=== PATIENT | female | born 1950 | race Caucasian/White ===

== ENCOUNTER 2019-08-27 12:24 | Emergency (ER) | payer MEDICARE, BC ==
--- NOTE | 2019-08-27 12:38 | ERPHSYRPT ---
- History of Present Illness Time Seen by Provider: 08/27/19 12:45 Source: patient Exam Limitations: no limitations Physician History: Patient is a 69-year-old female who presents to our ED with complaints of shortness of breath that has been progressive over the past 3 days. Shortness of breath is associated with a soreness sensation in her upper chest and back. No associated nausea or vomiting. No diaphoresis. Patient advises that she was treated for URI approximately 3 weeks ago. Patient was started on amoxicillin. Patient states her symptoms improved but appears to be returning. Patient had a CABG performed in March 2019. Patient states that things have been well from this perspective. Symptoms are progressive. Symptoms are moderate in intensity. No specific worsening or improving factors. Patient voices no other complaints at this time. Timing/Duration: day(s) (3 days) Activities at Onset: rest Severity of Dyspnea-Max: moderate Severity of Dyspnea-Current: moderate Possible Cause: no prior episodes Modifying Factors: Improves With: activity Associated Symptoms: chest pain/discomfort Allergies/Adverse Reactions: No Known Drug Allergies Allergy (Verified 10/15/15 17:49) Home Medications: Levothyroxine Sodium 25 Mcg [Synthroid 25 Mcg] 25 mcg PO DAILY 01/03/14 [ History] Lisinopril/Hydrochlorothiazide [Lisinopril-Hctz 20-12.5 mg Tab] 1 each PO DAILY 01/03/14 [History] Metformin HCl 500 mg [Glucophage 500 MG] 500 mg PO BID 01/03/14 [History] Simvastatin 10 mg PO HS 01/03/14 [History] Meclizine HCl 25 mg [Antivert 25 mg] 25 mg PO TIDPRN PRN 10/15/15 [History ] Perphenazine/Amitriptyline HCl [Perphen-Amitrip 2 mg-10 mg Tab] 1 each PO HS 05/31 [History] Hx Tetanus, Diphtheria Vaccination/Date Given: No Hx Influenza Vaccination/Date Given: Yes Hx Pneumococcal Vaccination/Date Given: Yes - Review of Systems Constitutional: No Symptoms, No Fever, No Chills Eyes: No Symptoms Ears, Nose, & Throat: No Symptoms Respiratory: No Symptoms, Dyspnea, Dyspnea on Exertion (LOZANO), No Cough Cardiac: No Symptoms, No Chest Pain, No Edema, No Syncope Abdominal/Gastrointestinal: No Symptoms, No Abdominal Pain, No Nausea, No Vomiting, No Diarrhea Genitourinary Symptoms: No Symptoms, No Dysuria Musculoskeletal: No Symptoms, No Back Pain, No Neck Pain Skin: No Symptoms, No Rash Neurological: No Symptoms, No Dizziness, No Focal Weakness, No Sensory Changes Psychological: No Symptoms Endocrine: No Symptoms Hematologic/Lymphatic: No Symptoms Immunological/Allergic: No Symptoms All Other Systems: Reviewed and Negative - Past Medical History Pertinent Past Medical History: Yes Neurological History: No Pertinent History ENT History: No Pertinent History Cardiac History: High Cholesterol, Hypertension, Myocardial Infarction ([place]) Respiratory History: No Pertinent History Endocrine Medical History: No Pertinent History Musculoskeletal History: No Pertinent History GI Medical History: Ulcer History: No Pertinent History Psycho-Social History: Depression Female Reproductive Disorders: No Pertinent History - Past Surgical History Past Surgical History: Yes Neuro Surgical History: No Pertinent History Cardiac: No Pertinent History Respiratory: No Pertinent History Gastrointestinal: Appendectomy Genitourinary: No Pertinent History Musculoskeletal: No Pertinent History Female Surgical History: Tubal Ligation - Social History Smoking Status: Never smoker Exposure to second hand smoke: Yes Drug Use: none Patient Lives Alone: Yes - Nursing Vital Signs Nursing Vital Signs: Initial Vital Signs Temperature 97.7 F 08/27/19 12:38 Pulse Rate 99 H 08/27/19 12:38 Respiratory Rate 30 H 08/27/19 12:38 Blood Pressure 107/90 08/27/19 12:38 O2 Sat by Pulse Oximetry 97 08/27/19 12:38 Pain Scale Pain Intensity 6 - Physical Exam General Appearance: no apparent distress, alert Eye Exam: PERRL/EOMI Neck Exam: normal inspection, supple Respiratory Exam: normal breath sounds Cardiovascular/Chest Exam: normal heart sounds, regular rate/rhythm, other ( Patient is visibly tachypneic. Lungs are clear. No wheezing. No rales or rhonchi.) Abdominal/Gastrointestinal Exam: soft, No tenderness, No distention, No mass Extremity Exam: non-tender, normal range of motion, normal inspection, no calf tenderness, no pedal edema Neurologic Exam: alert, oriented x 3, cooperative, outdoor studies professor II-XII nml as tested, sensation nml, No motor deficits Skin Exam: normal color, warm, No dry SpO2 Interpretation: normal SpO2: 97 O2 Delivery: Room Air - Course EKG Interpreted by Me: RATE, NORMAL AXIS, Left Bundle Branch Block (TWI inferiorly. ) - Radiology Exams Chest X-ray Interpretation: Teleradiologist Report (Chest x-ray reveals mild pleural effusion osteopenia.) - CT Exams Chest CT Interpretation: Tele-radiologist Report (CTA chest shows negative PE. Bilateral pleural effusion favoring cardiac decompensation CHF. Diffuse bilateral patchy airspace disease. Incompletely visualized 2 cm gallstone.) Ordered Tests: Active Orders 24 hr Category Date Time Status Diamond Sawer STAT Care 08/27/19 12:34 Active EKG-ER Only STAT Care 08/27/19 12:34 Active IV Insertion STAT Care 08/27/19 12:34 Active Isolation, Initiate & Maintain Q4H Care 08/27/19 13:05 Active Oxygen-ED Only Nasal Cannula 2 lpm Care 08/27/19 13:06 Active Pulse Oximetry (ED) STAT Care 08/27/19 12:34 Active CHEST 1 VIEW (PORTABLE) Stat Exams 08/27/19 12:59 Completed CHEST WITH CONTRAST [CT] Stat Exams 08/27/19 14:36 Completed ARTERIAL BLOOD GASES Stat Lab 08/27/19 15:38 Ordered BLOOD CULTURE Stat Lab 08/27/19 15:50 Ordered CBC W DIFF Stat Lab 08/27/19 12:45 Completed CMP Stat Lab 08/27/19 12:45 Completed MAGNESIUM Stat Lab 08/27/19 12:45 Completed NT PRO BNP Stat Lab 08/27/19 12:45 Completed PROTIME WITH INR Stat Lab 08/27/19 12:45 Completed PTT Stat Lab 08/27/19 12:45 Completed TROPONIN Q3H Lab 08/27/19 12:45 Received TROPONIN Q3H Lab 08/27/19 15:45 Ordered TROPONIN Q3H Lab 08/27/19 18:45 Ordered TROPONIN Q3H Lab 08/27/19 21:45 Ordered TROPONIN Q3H Lab 08/28/19 00:45 Ordered UA W/RFX UR CULTURE Stat Lab 08/27/19 16:03 Received Medication Summary Generic Name Dose Route Start Last Admin Trade Name Freq PRN Reason Stop Dose Admin Enoxaparin Sodium 96 mg 08/27/19 16:30 Enoxaparin Sodium SQ 09/26/19 16:29 Q12H VIVIANA Discontinued Medications Generic Name Dose Route Start Last Admin Trade Name Freq PRN Reason Stop Dose Admin Aspirin 324 mg 08/27/19 16:16 Baby Aspirin 81 Mg Chew PO 08/27/19 16:17 STAT ONE Furosemide 20 mg 08/27/19 14:28 08/27/19 15:33 Lasix 20 Mg/2 Ml IV 08/27/19 14:29 20 mg ONCE STA Administration Furosemide Confirm 08/27/19 15:31 Lasix 40 Mg/4 Ml Administered 08/27/19 15:32 Dose 40 mg .ROUTE .STK-MED ONE Lab/Rad Data: Laboratory Result Diagrams 08/27/19 12:45 08/27/19 12:45 Laboratory Results 08/27/19 08/27/19 08/27/19 Range/Units 16:03 16:00 12:45 WBC (4.0-10.5) K/mm3 RBC (4.1-5.4) M/mm3 Hgb (12.0-16.0) gm/dl Hct (35-47) % MCV (78-100) fl MCH (26-32) pg MCHC (32-36) g/dl RDW (11.5-14.0) % Plt Count (150-450) K/mm3 MPV (7.5-11.0) fl Gran % (36.0-66.0) % Eos # (Auto) (0-0.5) Absolute Lymphs (auto) (1.0-4.6) Absolute Monos (auto) (0.0-1.3) Lymphocytes % (24.0-44.0) % Monocytes % (0.0-12.0) % Eosinophils % (0.00-5.0) % Basophils % (0.0-0.4) % Absolute Granulocytes (1.4-6.9) Basophils # (0-0.4) PT (9.95-12.35) SECONDS INR (0.8-3.0) APTT (25.3-37.0) SECONDS Puncture Site RIGHT RADIAL pCO2 25 L (35-45) mmHg pO2 180 H* (75-100) mmHg Base Excess -3.8 L (-2.0-2.0) O2 Saturation 98.4 (94-100) g/dF ABG pH 7.47 H (7.35-7.45) ABG HCO3 18.2 L (22-28) ABG O2 Sat (Measured) 99.3 (95-100) % Kzrysztof Test YES A-a Gradient 74 a/A Ratio 0.71 Hemoglobin 13.3 Carboxyhemoglobin 0.7 (0.0-6.9) % THgb Methemoglobin 0.2 L (1.4-1.5) % Temperature 37.0 C POC O2 Flow Rate 40 % Sodium (137-145) mmol/L Potassium 4.2 (3.5-5.1) mmol/L Chloride (98-107) mmol/L Carbon Dioxide (22-30) mmol/L Anion Gap (5-15) MEQ/L BUN (7-17) mg/dL Creatinine (0.52-1.04) mg/dL Estimated GFR ML/MIN Glucose (74-106) mg/dL Calcium (8.4-10.2) mg/dL Magnesium 1.8 (1.6-2.3) mg/dL Total Bilirubin (0.2-1.3) mg/dL AST (14-36) U/L ALT (0-35) U/L Alkaline Phosphatase (38-126) U/L Troponin I (0.000-0.034) ng/mL NT-Pro-B Natriuret Pep (0-900) pg/mL Serum Total Protein (6.3-8.2) g/dL Albumin (3.5-5.0) g/dL Urine Color YELLOW (YELLOW) Urine Appearance SLIGHTLY CLOUDY (CLEAR) Urine pH 6.0 (5-6) Ur Specific Herrick 1.009 (1.005-1.025) Urine Protein NEGATIVE (Negative) Urine Ketones NEGATIVE (NEGATIVE) Urine Blood SMALL (0-5) Floyd/ul Urine Nitrite NEGATIVE (NEGATIVE) Urine Bilirubin NEGATIVE (NEGATIVE) Urine Urobilinogen NEGATIVE (0-1) mg/dL Ur Leukocyte Esterase MODERATE (NEGATIVE) Urine WBC (Auto) 51-100 (0-5) /HPF Urine RBC (Auto) 3-5 (0-2) /HPF U Hyaline Cast (Auto) 11-25 (0-2) /LPF U Epithel Cells (Auto) NONE (FEW) /HPF Urine Bacteria (Auto) FEW (NEGATIVE) /HPF Urine Mucus (Auto) SLIGHT (NEGATIVE) /HPF Urine Culture Reflexed YES (NO) Urine Glucose NEGATIVE (NEGATIVE) mg/dL 08/27/19 08/27/19 08/27/19 Range/Units 12:45 12:45 12:45 WBC (4.0-10.5) K/mm3 RBC (4.1-5.4) M/mm3 Hgb (12.0-16.0) gm/dl Hct (35-47) % MCV (78-100) fl MCH (26-32) pg MCHC (32-36) g/dl RDW (11.5-14.0) % Plt Count (150-450) K/mm3 MPV (7.5-11.0) fl Gran % (36.0-66.0) % Eos # (Auto) (0-0.5) Absolute Lymphs (auto) (1.0-4.6) Absolute Monos (auto) (0.0-1.3) Lymphocytes % (24.0-44.0) % Monocytes % (0.0-12.0) % Eosinophils % (0.00-5.0) % Basophils % (0.0-0.4) % Absolute Granulocytes (1.4-6.9) Basophils # (0-0.4) PT 11.9 (9.95-12.35) SECONDS INR 1.05 (0.8-3.0) APTT 30.3 (25.3-37.0) SECONDS Puncture Site pCO2 (35-45) mmHg pO2 (75-100) mmHg Base Excess (-2.0-2.0) O2 Saturation (94-100) g/dF ABG pH (7.35-7.45) ABG HCO3 (22-28) ABG O2 Sat (Measured) (95-100) % Krzysztof Test A-a Gradient a/A Ratio Hemoglobin Carboxyhemoglobin (0.0-6.9) % THgb Methemoglobin (1.4-1.5) % Temperature C POC O2 Flow Rate % Sodium 140 (137-145) mmol/L Potassium 4.3 (3.5-5.1) mmol/L Chloride 106 (98-107) mmol/L Carbon Dioxide 24 (22-30) mmol/L Anion Gap 14.5 (5-15) MEQ/L BUN 18 H (7-17) mg/dL Creatinine 0.91 (0.52-1.04) mg/dL Estimated GFR > 60.0 ML/MIN Glucose 142 H (74-106) mg/dL Calcium 9.6 (8.4-10.2) mg/dL Magnesium (1.6-2.3) mg/dL Total Bilirubin 1.50 H (0.2-1.3) mg/dL AST 29 (14-36) U/L ALT 18 (0-35) U/L Alkaline Phosphatase 123 (38-126) U/L Troponin I 1.450 H* (0.000-0.034) ng/mL NT-Pro-B Natriuret Pep 8560 H (0-900) pg/mL Serum Total Protein 7.7 (6.3-8.2) g/dL Albumin 4.2 (3.5-5.0) g/dL Urine Color (YELLOW) Urine Appearance (CLEAR) Urine pH (5-6) Ur Specific Herrick (1.005-1.025) Urine Protein (Negative) Urine Ketones (NEGATIVE) Urine Blood (0-5) Floyd/ul Urine Nitrite (NEGATIVE) Urine Bilirubin (NEGATIVE) Urine Urobilinogen (0-1) mg/dL Ur Leukocyte Esterase (NEGATIVE) Urine WBC (Auto) (0-5) /HPF Urine RBC (Auto) (0-2) /HPF U Hyaline Cast (Auto) (0-2) /LPF U Epithel Cells (Auto) (FEW) /HPF Urine Bacteria (Auto) (NEGATIVE) /HPF Urine Mucus (Auto) (NEGATIVE) /HPF Urine Culture Reflexed (NO) Urine Glucose (NEGATIVE) mg/dL 08/27/19 Range/Units 12:45 WBC 10.9 H (4.0-10.5) K/mm3 RBC 4.80 (4.1-5.4) M/mm3 Hgb 12.5 (12.0-16.0) gm/dl Hct 40.6 (35-47) % MCV 84.6 (78-100) fl MCH 26.0 (26-32) pg MCHC 30.8 L (32-36) g/dl RDW 15.8 H (11.5-14.0) % Plt Count 245 (150-450) K/mm3 MPV 11.4 H (7.5-11.0) fl Gran % 78.0 H (36.0-66.0) % Eos # (Auto) 0.34 (0-0.5) Absolute Lymphs (auto) 1.23 (1.0-4.6) Absolute Monos (auto) 0.78 (0.0-1.3) Lymphocytes % 11.3 L (24.0-44.0) % Monocytes % 7.2 (0.0-12.0) % Eosinophils % 3.1 (0.00-5.0) % Basophils % 0.4 (0.0-0.4) % Absolute Granulocytes 8.48 H (1.4-6.9) Basophils # 0.04 (0-0.4) PT (9.95-12.35) SECONDS INR (0.8-3.0) APTT (25.3-37.0) SECONDS Puncture Site pCO2 (35-45) mmHg pO2 (75-100) mmHg Base Excess (-2.0-2.0) O2 Saturation (94-100) g/dF ABG pH (7.35-7.45) ABG HCO3 (22-28) ABG O2 Sat (Measured) (95-100) % Krzysztof Test A-a Gradient a/A Ratio Hemoglobin Carboxyhemoglobin (0.0-6.9) % THgb Methemoglobin (1.4-1.5) % Temperature C POC O2 Flow Rate % Sodium (137-145) mmol/L Potassium (3.5-5.1) mmol/L Chloride (98-107) mmol/L Carbon Dioxide (22-30) mmol/L Anion Gap (5-15) MEQ/L BUN (7-17) mg/dL Creatinine (0.52-1.04) mg/dL Estimated GFR ML/MIN Glucose (74-106) mg/dL Calcium (8.4-10.2) mg/dL Magnesium (1.6-2.3) mg/dL Total Bilirubin (0.2-1.3) mg/dL AST (14-36) U/L ALT (0-35) U/L Alkaline Phosphatase (38-126) U/L Troponin I (0.000-0.034) ng/mL NT-Pro-B Natriuret Pep (0-900) pg/mL Serum Total Protein (6.3-8.2) g/dL Albumin (3.5-5.0) g/dL Urine Color (YELLOW) Urine Appearance (CLEAR) Urine pH (5-6) Ur Specific Herrick (1.005-1.025) Urine Protein (Negative) Urine Ketones (NEGATIVE) Urine Blood (0-5) Floyd/ul Urine Nitrite (NEGATIVE) Urine Bilirubin (NEGATIVE) Urine Urobilinogen (0-1) mg/dL Ur Leukocyte Esterase (NEGATIVE) Urine WBC (Auto) (0-5) /HPF Urine RBC (Auto) (0-2) /HPF U Hyaline Cast (Auto) (0-2) /LPF U Epithel Cells (Auto) (FEW) /HPF Urine Bacteria (Auto) (NEGATIVE) /HPF Urine Mucus (Auto) (NEGATIVE) /HPF Urine Culture Reflexed (NO) Urine Glucose (NEGATIVE) mg/dL - Progress Progress: improved Air Movement: fair Progress Note: 08/27/19 16:31 Patient reassessed. Shortness of breath somewhat improved. Patient is still visibly tachypneic. Troponin elevated. Aspirin and Lovenox administered. BNP elevated. CTA chest shows pleural effusion suggestive of possible congestive heart failure. Bilateral pulmonary airspace disease observed. Possible covid. Patient and in airborne isolation. Staff has been wearing a 95 masks while contact. Initial troponin elevated at 1.45. Patient has normal renal function. 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 Case discussed with Dr. Lynn who agrees with plan of care. Plan of care discussed with patient. She agrees to transfer to [facility] for further evaluation and treatment. Discussed with .: Tim Will see patient in: other (We will transfer patient to [facility] for further evaluation and treatment.) Counseled pt/family regarding: lab results, diagnosis, rad results - Departure Departure Disposition: Home, In-patient Admission, Extended Care Facility Clinical Impression: Bilateral pneumonia, Shortness of breath, Cardiomegaly, Pleural effusion, Gallstone, NSTEMI (non-ST elevated myocardial infarction), Elevated brain natriuretic peptide (BNP) level, Elevated troponin, CHF (congestive heart failure) Condition: Stable Critical Care Time: Yes Critical Care Time(excluding separately billable procedures): Critical 75-104 mins Referrals: VANESSA WRIGHT [Primary Care Provider] - Instructions: Heart Failure
--- NOTE | 2019-08-27 13:14 | XRAY ---
Indication: Chest pain, short of breath, and chills. Suspect COVID 19. Comparison: January 03, 2014. Portable chest demonstrates new blunting both costophrenic angles suggesting mild pleural effusion/thickening. Remaining heart and lungs unremarkable with interval CABG surgery. Bony thorax intact again with mild osteopenia and degenerative changes.
[2019-08-27 13:28] LABS: Absolute Neutrophil Ct (ANC) 8.48 (1.4-6.9); BASOPHIL % 0.4 % (0.0-0.4); Basophil (Absolute #) 0.04 (0-0.4); Eosinophil % 3.1 % (0.00-5.0); Eosinophil (Absolute #) 0.34 (0-0.5); Hematocrit 40.6 % (35-47); Hemoglobin 12.5 gm/dl (12.0-16.0); Lymphocyte (Absolute #) 1.23 (1.0-4.6); Lymphocytes % 11.3 % (24.0-44.0); Mean Cell Volume 84.6 fl (78-100); Mean Corpuscular Hgb Concent. 30.8 g/dl (32-36); Mean Platelet Volume 11.4 fl (7.5-11.0); Monocyte (Absolute #) 0.78 (0.0-1.3); Monocytes % 7.2 % (0.0-12.0); Platelet Count 245 K/mm3 (150-450); Red Cell Distribution Width 15.8 % (11.5-14.0); White Blood Count 10.9 K/mm3 (4.0-10.5)
[2019-08-27 13:37] LABS: INR 1.05 (0.8-3.0); PROTIME 11.9 SECONDS (9.95-12.35)
[2019-08-27 13:40] LABS: PTT 30.3 SECONDS (25.3-37.0)
[2019-08-27 13:50] LABS: ALBUMIN 4.2 g/dL (3.5-5.0); ALKALINE PHOSPHATASE 123 U/L (38-126); ANION GAP 14.5 MEQ/L (5-15); BLOOD UREA NITROGEN 18 mg/dL (7-17); CHLORIDE 106 mmol/L (98-107); Calcium 9.6 mg/dL (8.4-10.2); Carbon Dioxide 24 mmol/L (22-30); Creatinine 1 0.91 mg/dL (0.52-1.04); Glucose 142 mg/dL (74-106); NT PRO BNP 8560 pg/mL (0-900); Potassium 4.3 mmol/L (3.5-5.1); SGOT/AST 29 U/L (14-36); SGPT/ALT 18 U/L (0-35); SODIUM 140 mmol/L (137-145); Total Protein 7.7 g/dL (6.3-8.2)
[2019-08-27] MEDS ORDERED: Lasix 20 MG/2 ML IV STA (14:28)
[2019-08-27] MEDS ORDERED: Lasix 40 MG/4 ML ONE (15:31)
--- NOTE | 2019-08-27 15:34 | XRAY ---
Indication: Short of breath. Elevated d-dimer. Multiple contiguous axial images obtained through the chest using 100 cc Isovue-370 contrast and PE protocol. Comparison: None There is good opacification of the pulmonary arteries to include the lobar and segmental branches. No filling defect or pulmonary embolus. Heart is enlarged and demonstrates CABG surgery. No parenchymal effusion. Aorta is mildly arteriosclerotic without aneurysm/dissection. Tiny subcarinal and left perihilar calcified nodes. No pathologic mediastinal/hilar lymphadenopathy. Examination of the lung parenchyma demonstrates moderate right and mild left effusions with mild bibasilar compressive atelectasis. Also diffuse patchy airspace disease bilaterally, greatest right upper lobe. Bony thorax intact with mild degenerative changes throughout the spine and sternotomy wires. Limited upper abdomen demonstrates incompletely visualized 2 cm dense gallstone. Impression: 1. Negative pulmonary embolus. 2. Cardiomegaly with bilateral pleural effusions favoring cardiac decompensation/CHF. 3. Diffuse bilateral patchy airspace disease. 4. Incompletely visualized 2 cm gallstone.
[2019-08-27 16:05] LABS: A-aADO2 74; ABG HEMOGLOBIN 13.3; ABG POTASSIUM 4.2 (3.5-5.1); ABG SITE RIGHT RADIAL; ALLEN TEST OK? YES; ARTERIAL BLD GAS O2 SATURATION 99.3 % (95-100); ARTERIAL BLOOD GAS BASE EXCESS -3.8 (-2.0-2.0); ARTERIAL BLOOD GAS FIO2 40 %; ARTERIAL BLOOD GAS PCO2 25 mmHg (35-45); ARTERIAL BLOOD GAS PO2 180 mmHg (75-100); ARTERIAL BLOOD GAS pH 7.47 (7.35-7.45); CARBOXYHEMOGLOBIN 0.7 % THgb (0.0-6.9); HCO3- 18.2 (22-28); HGB O2 SAT 98.4 g/dF (94-100); Methhemoglobin 0.2 % (1.4-1.5); paO2 pAO1 0.71
[2019-08-27 16:13] LABS: Appearance SLIGHTLY CLOUDY (CLEAR); Bacteria FEW /HPF (NEGATIVE); Bilirubin NEGATIVE (NEGATIVE); Blood SMALL Ery/ul (0-5); Glucose NEGATIVE (NEGATIVE); Ketones NEGATIVE (NEGATIVE); Leukocyte Esterase MODERATE (NEGATIVE); Mucus SLIGHT /HPF (NEGATIVE); Nitrite NEGATIVE (NEGATIVE); Protein,Urine Dip NEGATIVE (Negative); Specific Gravity 1.009 (1.005-1.025); Urobilinogen NEGATIVE mg/dL (0-1); WBC 51-100 /HPF (0-5)
[2019-08-27] MEDS ORDERED: BABY ASPIRIN 81 MG CHEW PO ONE (16:16)
[2019-08-27] MEDS ORDERED: ENOXAPARIN SODIUM SQ ONE (16:25)
[2019-08-27] MEDS ORDERED: BABY ASPIRIN 81 MG CHEW ONE (16:25)
[2019-08-27] MEDS ORDERED: ENOXAPARIN SODIUM SQ SCH (16:30)
[2019-08-27 16:45] VITALS: BP 99/70; PULSE 97; O2SAT 100
== END 2019-08-27 17:06 | disposition short-term general hospital (02) ==
LOC: ED 12:24
DX: J18.9 Pneumonia, unspecified organism (principal); R06.02 Shortness of breath; I51.7 Cardiomegaly; J90 Pleural effusion, not elsewhere classified; K80.80 Other cholelithiasis without obstruction; I21.4 Non-ST elevation (NSTEMI) myocardial infarction; R79.89 Other specified abnormal findings of blood chemistry; I50.9 Heart failure, unspecified; I10 Essential (primary) hypertension; Z79.899 Other long term (current) drug therapy
CPT/HCPCS: 71260; 80053; 81001; 82375; 82803; 83735; 83880; 84484; 85025; 85610; 85730; 87040; 87077; 87086; 87186; 93005; 93041; 96372; 96374; 99291; 99292; U0001; 36000; 36415; 36600; 71045; 94760; 99000; 99285; J1650; J1940; A9270-GY

== ENCOUNTER 2019-11-11 15:46 | Emergency (ER) | payer MEDICARE, BC ==
--- NOTE | 2019-11-11 15:56 | ERPHSYRPT ---
- History of Present Illness Time Seen by Provider: 11/11/19 15:56 Source: patient, family Exam Limitations: no limitations Physician History: This is a 69-year-old female with a history of coronary artery disease, CHF, gastroesophageal reflux disease, diabetes, gout, hypertension and hypothyroidism. Patient is taking Plavix. Patient presents with intermittent nosebleed from the left nostril since 9:00 this morning. Patient was having some nasal congestion and she blew her nose. She states that there was a "Booger" that she ended up picking and that is when the bleeding started. She is been unable to stop the bleeding. Timing/Duration: abrupt onset Severity: moderate ENT Location: nose Prearrival Treatment: squeezing nostrils, nasal packing Associated Symptoms: epistaxis, No dizziness Allergies/Adverse Reactions: cefdinir Allergy (Severe, Verified 11/11/19 16:09) Home Medications: Acetaminophen 325 mg [Tylenol 325 mg] 325 mg PO Q4HPRN PRN 08/27/19 [History] Allopurinol 100 mg [Zyloprim 100 mg] 100 mg PO DAILY 08/27/19 [History] Alprazolam 0.25 mg [xanAX 0.25 MG] 0.25 mg PO DAILY 08/27/19 [History] Aspirin EC 81 mg [Ecotrin 81 mg] 81 mg PO DAILY 08/27/19 [History] Atorvastatin Calcium [Lipitor] 80 mg PO HS 08/27/19 [History] Ergocalciferol (Vitamin D2) [Vitamin D2] 50,000 unit PO Q7D 08/27/19 [History] Ezetimibe 10 mg [Zetia 10 MG] 10 mg PO DAILY 08/27/19 [History] Furosemide 40 mg [Lasix 40 MG] 40 mg PO DAILY 08/27/19 [History] Levothyroxine Sodium 75 Mcg [Synthroid 75 Mcg] 75 mcg PO DAILY 08/27/19 [History] Loratadine 10 mg [Claritin 10 mg] 10 mg PO DAILY 08/27/19 [History] Metformin HCl 500 mg [Glucophage 500 MG] 500 mg PO BIDWM 08/27/19 [History] Metoprolol Tartrate 25 mg [Lopressor 25MG Tab] 25 mg PO BID 08/27/19 [History] Omeprazole 20 mg PO DAILY 08/27/19 [History] Clopidogrel Bisulfate [Clopidogrel] 75 mg PO DAILY 11/11/19 [History] Potassium Chloride [Klor-Con M20] 20 meq PO DAILY 11/11/19 [History] Hx Tetanus, Diphtheria Vaccination/Date Given: No Hx Influenza Vaccination/Date Given: Yes Hx Pneumococcal Vaccination/Date Given: Yes Travel Risk - International Travel Have you traveled outside of the country in past 3 weeks: No - Coronavirus Screening Are you exhibiting any of the following symptoms?: No Close contact with a COVID-19 positive Pt in past 14-21 Days: No - Review of Systems Constitutional: No Symptoms Eyes: No Symptoms Ears, Nose, & Throat: Epistaxis (Left side) Respiratory: No Symptoms Cardiac: No Symptoms Abdominal/Gastrointestinal: No Symptoms Genitourinary Symptoms: No Symptoms (Patient should like a good amount for no reason) Musculoskeletal: No Symptoms Skin: No Symptoms Neurological: No Symptoms Psychological: No Symptoms Endocrine: No Symptoms Hematologic/Lymphatic: No Symptoms Immunological/Allergic: No Symptoms All Other Systems: Reviewed and Negative - Past Medical History Pertinent Past Medical History: Yes Neurological History: No Pertinent History ENT History: No Pertinent History Cardiac History: High Cholesterol, Hypertension, Myocardial Infarction ([place]) Respiratory History: No Pertinent History Endocrine Medical History: No Pertinent History Musculoskeletal History: No Pertinent History GI Medical History: Ulcer History: No Pertinent History Psycho-Social History: Depression Female Reproductive Disorders: No Pertinent History - Past Surgical History Past Surgical History: Yes Neuro Surgical History: No Pertinent History Cardiac: No Pertinent History Respiratory: No Pertinent History Gastrointestinal: Appendectomy Genitourinary: No Pertinent History Musculoskeletal: No Pertinent History Female Surgical History: Tubal Ligation - Social History Smoking Status: Never smoker Exposure to second hand smoke: Yes Drug Use: none Patient Lives Alone: Yes - Nursing Vital Signs Nursing Vital Signs: Initial Vital Signs Temperature 98.2 F 11/11/19 15:55 Pulse Rate 97 H 11/11/19 15:55 Blood Pressure 143/75 11/11/19 15:55 O2 Sat by Pulse Oximetry 100 11/11/19 15:55 Pain Scale Pain Intensity 0 - Physical Exam General Appearance: no apparent distress, alert, anxiety Eye Exam: bilateral eye: normal inspection, PERRL, EOMI Ear Exam: bilateral ear: auricle normal Nasal Exam: active bleeding (Left nostril slow ooze.) Throat Exam: moist mucus membranes (No active bleeding patient has upper dentures present.) Neck Exam: normal inspection, non-tender, supple, full range of motion, trachea midline, No lymphadenopathy (L) Cardiovascular/Respiratory Exam: chest non-tender, no respiratory distress Abdominal Exam: non-tender Neurologic Exam: alert, oriented x 3, cooperative, title attorney II-XII nml as tested Skin Exam: normal color, warm, dry SpO2 Interpretation: normal O2 Delivery: Room Air - Course Nursing assessment & vital signs reviewed: Yes Ordered Tests: Active Orders 24 hr Category Date Time Status Apply Nose Clip STAT Care 11/11/19 16:37 Active Epistaxis Set Up STAT Care 11/11/19 16:37 Active CBC W DIFF Stat Lab 11/11/19 16:56 Completed CMP Stat Lab 11/11/19 16:56 Completed PROTIME WITH INR Stat Lab 11/11/19 16:56 Completed Medication Summary Discontinued Medications Generic Name Dose Route Start Last Admin Trade Name Freq PRN Reason Stop Dose Admin Phenylephrine HCl Confirm 11/11/19 16:37 Neosynephrine 0.5% Nasal [place]/Drops Administered 11/11/19 16:38 Dose 15 ml .ROUTE .STK-MED ONE Phenylephrine HCl 15 ml 11/11/19 16:37 11/11/19 17:11 Neosynephrine 0.5% Nasal [place]/Drops NS 11/11/19 16:38 15 ml STAT ONE Administration Lab/Rad Data: Laboratory Result Diagrams 11/11/19 16:56 11/11/19 16:56 Laboratory Results 11/11/19 11/11/19 11/11/19 Range/Units 16:56 16:56 16:56 WBC 10.1 (4.0-10.5) K/mm3 RBC 4.80 (4.1-5.4) M/mm3 Hgb 12.5 (12.0-16.0) gm/dl Hct 40.4 (35-47) % MCV 84.2 (78-100) fl MCH 26.0 (26-32) pg MCHC 30.9 L (32-36) g/dl RDW 16.7 H (11.5-14.0) % Plt Count 232 (150-450) K/mm3 MPV 10.5 (7.5-11.0) fl Gran % 66.7 H (36.0-66.0) % Eos # (Auto) 0.45 (0-0.5) Absolute Lymphs (auto) 2.11 (1.0-4.6) Absolute Monos (auto) 0.80 (0.0-1.3) Lymphocytes % 20.8 L (24.0-44.0) % Monocytes % 7.9 (0.0-12.0) % Eosinophils % 4.4 (0.00-5.0) % Basophils % 0.2 (0.0-0.4) % Absolute Granulocytes 6.76 (1.4-6.9) Basophils # 0.02 (0-0.4) PT 11.7 (9.95-12.35) SECONDS INR 1.04 (0.8-3.0) Sodium 140 (137-145) mmol/L Potassium 3.5 (3.5-5.1) mmol/L Chloride 105 (98-107) mmol/L Carbon Dioxide 26 (22-30) mmol/L Anion Gap 12.2 (5-15) MEQ/L BUN 17 (7-17) mg/dL Creatinine 0.82 (0.52-1.04) mg/dL Estimated GFR > 60.0 ML/MIN Glucose 114 H (74-106) mg/dL Calcium 9.1 (8.4-10.2) mg/dL Total Bilirubin 0.70 (0.2-1.3) mg/dL AST 25 (14-36) U/L ALT 18 (0-35) U/L Alkaline Phosphatase 102 (38-126) U/L Serum Total Protein 7.6 (6.3-8.2) g/dL Albumin 4.4 (3.5-5.0) g/dL - Progress Progress: improved, re-examined Progress Note: 11/11/19 17:49 No further bleeding. Counseled pt/family regarding: lab results, diagnosis, need for follow-up - Departure Departure Disposition: Home Clinical Impression: Epistaxis due to trauma Condition: Stable Critical Care Time: No Referrals: VANESSA WRIGHT [Primary Care Provider] - Additional Instructions: Hold your Plavix and aspirin for 48 hours. May restart on November 12. If there is recurrent bleeding present, spray 3 sprays of the Jed-Synephrine into the affected nostril no more often than every 4 hours and then placed the nasal clip for at least 30 minutes.
[2019-11-11] MEDS ORDERED: NEOSYNEPHRINE 0.5% NASAL SPRAY/DROPS NS ONE (16:37)
[2019-11-11] MEDS ORDERED: NEOSYNEPHRINE 0.5% NASAL SPRAY/DROPS ONE (16:37)
[2019-11-11 16:59] LABS: Absolute Neutrophil Ct (ANC) 6.76 (1.4-6.9); BASOPHIL % 0.2 % (0.0-0.4); Basophil (Absolute #) 0.02 (0-0.4); Eosinophil % 4.4 % (0.00-5.0); Eosinophil (Absolute #) 0.45 (0-0.5); Hematocrit 40.4 % (35-47); Hemoglobin 12.5 gm/dl (12.0-16.0); Lymphocyte (Absolute #) 2.11 (1.0-4.6); Lymphocytes % 20.8 % (24.0-44.0); Mean Cell Volume 84.2 fl (78-100); Mean Corpuscular Hgb Concent. 30.9 g/dl (32-36); Mean Platelet Volume 10.5 fl (7.5-11.0); Monocytes % 7.9 % (0.0-12.0); Neutrophil % 66.7 % (36.0-66.0); Platelet Count 232 K/mm3 (150-450); Red Cell Distribution Width 16.7 % (11.5-14.0); White Blood Count 10.1 K/mm3 (4.0-10.5)
[2019-11-11 17:06] LABS: INR 1.04 (0.8-3.0); PROTIME 11.7 SECONDS (9.95-12.35)
[2019-11-11 17:10] LABS: ALBUMIN 4.4 g/dL (3.5-5.0); ALKALINE PHOSPHATASE 102 U/L (38-126); ANION GAP 12.2 MEQ/L (5-15); BLOOD UREA NITROGEN 17 mg/dL (7-17); CHLORIDE 105 mmol/L (98-107); Calcium 9.1 mg/dL (8.4-10.2); Carbon Dioxide 26 mmol/L (22-30); Creatinine 1 0.82 mg/dL (0.52-1.04); Glucose 114 mg/dL (74-106); Potassium 3.5 mmol/L (3.5-5.1); SGOT/AST 25 U/L (14-36); SGPT/ALT 18 U/L (0-35); SODIUM 140 mmol/L (137-145); Total Protein 7.6 g/dL (6.3-8.2)
[2019-11-11 18:02] VITALS: BP 129/80; PULSE 91; O2SAT 99
== END 2019-11-11 18:02 | disposition home or self-care (01) ==
LOC: ED 15:46
DX: R04.0 Epistaxis (principal); I25.10 Atherosclerotic heart disease of native coronary artery without angina pectoris; I50.9 Heart failure, unspecified; K21.9 Gastro-esophageal reflux disease without esophagitis; E11.9 Type 2 diabetes mellitus without complications; Z79.4 Long term (current) use of insulin; M10.9 Gout, unspecified; I10 Essential (primary) hypertension; E03.9 Hypothyroidism, unspecified; Z79.899 Other long term (current) drug therapy; I25.2 Old myocardial infarction
CPT/HCPCS: 36415; 80053; 85025; 85610; 99283; A9270-GY

== ENCOUNTER 2023-01-17 01:37 | Emergency (ER) | payer MEDICARE, BC ==
[2023-01-17 01:48] VITALS: TEMP 97.7
[2023-01-17] MEDS ORDERED: NEOSYNEPHRINE 0.5% NASAL SPRAY/DROPS ONE (01:54)
[2023-01-17] MEDS ORDERED: NEOSYNEPHRINE 0.5% NASAL SPRAY/DROPS NS ONE (01:55)
--- NOTE | 2023-01-17 02:19 | ERPHSYRPT ---
- History of Present Illness Time Seen by Provider: 01/17/23 01:50 Source: patient, family Exam Limitations: no limitations Patient Subjective Stated Complaint: nosebleed Triage Nursing Assessment: pt ambulated into ER without diff, spouse at bedside. Pt c/o nose bleed from both nares which occured about 12:30 am. Pt went in to wash her face and blew her nose and it started bleeding. Pt is unable to get it stopped. Physician History: This is a morbidly obese 73-year-old white female patient who has a history of coronary artery disease and is taking Plavix and aspirin presents with nosebleed bilaterally. There was abrupt onset of bleeding from both nasal passages approximately midnight prior to her arrival. Patient was up brushing her teeth and to her nose and the bleeding suddenly started. They headed towards our emergency department. They live in [facility]. However, the bleeding seemed to stop so they went back home. Soon after the bleeding recurred so she came into the emergency department. Her vital signs are stable. A nasal clamp was placed. There continued to be bleeding posteriorly and some anteriorly despite the nasal clamp placement. Patient has a history of anxiety, hyperli pidemia, hypertension, diabetes, hypothyroidism and gastroesophageal reflux disease. Timing/Duration: abrupt onset, this morning Severity: moderate ENT Location: nose Prearrival Treatment: no prearrival treatment Modifying Factors: Improves With: nothing Associated Symptoms: epistaxis (Bilateral nostrils) Allergies/Adverse Reactions: cefdinir Allergy (Severe, Verified 01/17/23 01:53) Home Medications: ALPRAZolam 0.25 MG [xanAX 0.25 MG] 0.25 mg PO TID PRN PRN 08/27/19 [History] Acetaminophen 325 mg [Tylenol 325 mg] 325 mg PO Q4HPRN PRN 08/27/19 [History] Allopurinol 100 mg [Zyloprim 100 mg] 100 mg PO DAILY 08/27/19 [History] Aspirin EC 81 mg [Ecotrin 81 mg] 81 mg PO DAILY 08/27/19 [History] Atorvastatin Calcium [Lipitor] 80 mg PO HS 08/27/19 [History] Furosemide 40 mg [Lasix 40 MG] 20 mg PO UD 08/27/19 [History] Levothyroxine Sodium 75 Mcg [Synthroid 75 Mcg] 75 mcg PO DAILY 08/27/19 [History] Metformin HCl 500 mg [Glucophage 500 MG] 500 mg PO BIDWM 08/27/19 [History] Metoprolol Tartrate 25 mg [Lopressor 25MG Tab] 100 mg PO DAILY 08/27/19 [History] Omeprazole 20 mg PO DAILY 08/27/19 [History] Clopidogrel Bisulfate [Clopidogrel] 75 mg PO DAILY 11/11/19 [History] Hx Tetanus, Diphtheria Vaccination/Date Given: Yes Hx Influenza Vaccination/Date Given: Yes Hx Pneumococcal Vaccination/Date Given: Yes Immunizations Up to Date: Yes Travel Risk - International Travel Have you traveled outside of the country in past 3 weeks: No - Coronavirus Screening Are you exhibiting any of the following symptoms?: No Close contact with a COVID-19 positive Pt in past 14-21 Days: No - Vaccine Status Have you recieved a Covid-19 vaccination: Yes 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 - Review of Systems Constitutional: No Symptoms Eyes: No Symptoms Ears, Nose, & Throat: Epistaxis (Bilateral nostrils left greater than right) Respiratory: No Symptoms Cardiac: No Symptoms Abdominal/Gastrointestinal: No Symptoms Genitourinary Symptoms: No Symptoms Musculoskeletal: No Symptoms Skin: No Symptoms Neurological: No Symptoms Psychological: No Symptoms Endocrine: No Symptoms Hematologic/Lymphatic: No Symptoms Immunological/Allergic: No Symptoms - Past Medical History Pertinent Past Medical History: Yes Neurological History: No Pertinent History ENT History: No Pertinent History Cardiac History: High Cholesterol, Hypertension, Myocardial Infarction ([place]) Respiratory History: No Pertinent History Endocrine Medical History: No Pertinent History Musculoskeletal History: No Pertinent History GI Medical History: Ulcer History: No Pertinent History Psycho-Social History: Depression Female Reproductive Disorders: No Pertinent History - Past Surgical History Past Surgical History: Yes Neuro Surgical History: No Pertinent History Cardiac: CABG, Cardiac Catheterization, Cardiac Stent, Pacemaker Respiratory: No Pertinent History Gastrointestinal: Appendectomy Genitourinary: No Pertinent History Musculoskeletal: No Pertinent History Female Surgical History: Tubal Ligation - Social History Smoking Status: Never smoker Exposure to second hand smoke: Yes Drug Use: none Patient Lives Alone: No - Nursing Vital Signs Nursing Vital Signs: Initial Vital Signs Temperature 97.7 F 01/17/23 01:43 Pulse Rate 66 01/17/23 01:43 Respiratory Rate 20 01/17/23 01:43 Blood Pressure 171/80 01/17/23 01:43 O2 Sat by Pulse Oximetry 97 01/17/23 01:43 Pain Scale Pain Intensity 0 - Physical Exam General Appearance: no apparent distress, alert, anxiety, obese Eye Exam: bilateral eye: normal inspection, PERRL, EOMI Ear Exam: bilateral ear: auricle normal Nasal Exam: active bleeding (Slow ooze bilaterally left greater than right), dried blood (Around oral cavity there is mild) Neck Exam: normal inspection, non-tender, supple, full range of motion Cardiovascular/Respiratory Exam: chest non-tender, no respiratory distress Abdominal Exam: non-tender Neurologic Exam: alert, oriented x 3, cooperative, solar system designer II-XII nml as tested, normal mood/affect, nml cerebellar function, nml station & gait, sensation nml Skin Exam: normal color, warm, dry SpO2 Interpretation: normal SpO2: 97 O2 Delivery: Room Air - Course Nursing assessment & vital signs reviewed: Yes Ordered Tests: Medication Summary Discontinued Medications Generic Name Dose Route Start Last Admin Trade Name Daleq PRN Reason Stop Dose Admin Phenylephrine HCl Confirm 01/17/23 01:54 Neosynephrine 0.5% Nasal [place]/Drops Administered 01/17/23 01:55 Dose 15 ml .ROUTE .STK-MED ONE Phenylephrine HCl 15 ml 01/17/23 01:55 01/17/23 01:55 Neosynephrine 0.5% Nasal [place]/Drops NS 01/17/23 01:56 15 ml STAT ONE Administration - Progress Progress: improved Progress Note: 01/17/23 03:11 This patient's medical issue is 1 of moderate complexity. This is based on the patient's past medical history, review of the patient's medication list, review of the patient's drug allergy list, history of present illness and physical findings on examination. It is also based on the amount of time was spent observing and intervening on this patient as well as making phone calls on her behalf and multiple reassessments. The work-up in this patient did not include obtaining laboratory radiographic studies. I did not feel it was necessary to we draw any anticoagulation labs or CBC. The patient is on Plavix and aspirin I did not think the PT/INR would be helpful and the aspirin was only a baby asp irin. Procedure note Timeout was performed. Nasal clamp was placed immediately upon the patient's arrival. Approximately 20 minutes after arrival 2 sprays of Jed- Synephrine in each nostril was performed and the nasal clamp was reattached. We then placed bilateral 7.5 anterior/posterior Rhino Rocket's after moistening with sterile water and inflating the balloon. This did significantly slow down the bleeding. However, the patient was very uncomfortable and did not want to have the Rhino Rocket's in place any longer. They were in place approximately 20 to 30 minutes before the patient requested removal. We then sprayed an additional 2 sprays of Jed-Synephrine into each nostril and placed a nasal clamp. The trickle sensation posteriorly ceased as did the anterior flow of blood from her nostrils. We called [facility] and they do not have arresting gear operator on- call. [facility] has no arresting gear operator on-call. [facility] does not have arresting gear operator on-call. We then called [facility] emergency department and they do have a Dr. Cordova arresting gear operator cash applications manager. Patient desires to be disch arged to home and I believe she is medically stable to do that. She wants to try a few more rounds of the Jed-Synephrine spray and nasal clamping if needed at home. She will proceed to [facility] if she feels she is in need of ear nose and throat intervention. Patient was told to stop her Plavix and baby aspirin for 48 hours. She will also call her golf superintendent this morning at approximately 8 30-9 o'clock to get further instructions on when to start Plavix and baby aspirin. She told me she was concerned because her golf superintendent told her to never stop her Plavix and baby aspirin. Counseled pt/family regarding: diagnosis, need for follow-up Medical Desision Making - Independent Historian Additional History obtained from: Spouse - Diagnostic Testing Diagnostic test were ordered, analyzed, and reviewed by me: No - Risk of complications Low Risk: Low risk of morbidity from additional dx testing or treatment - Departure Departure Disposition: Home Clinical Impression: Epistaxis Condition: Stable Critical Care Time: No Referrals: MARLIN MILLER MD [Primary Care Provider] - Follow up/PCP as directed Additional Instructions: Leave the nasal clamp in place for an additional 15 minutes after your home. If you have a recurrence of your nosebleed after 4 hours, may place 3 drops into the nostril that is bleeding no more than every 4 hours then clamp for at least 30 minutes. Stop your Plavix and baby aspirin. Call your golf superintendent to obt ain further instructions and management of your Plavix and baby aspirin. If you feel you require more specialized intervention, return to this emergency department or a different emergency department for ENT intervention.
[2023-01-17 03:06] VITALS: BP 151/101; PULSE 77; RESP 22
[2023-01-17 03:16] VITALS: O2SAT 97
== END 2023-01-17 03:26 | disposition home or self-care (01) ==
LOC: ED 01:37
DX: R04.0 Epistaxis (principal); E78.5 Hyperlipidemia, unspecified; I10 Essential (primary) hypertension; E11.9 Type 2 diabetes mellitus without complications; Z79.02 Long term (current) use of antithrombotics/antiplatelets; Z79.84 Long term (current) use of oral hypoglycemic drugs; Z79.899 Other long term (current) drug therapy
CPT/HCPCS: 99281; A9270-GY

== ENCOUNTER 2024-05-06 02:18 | Emergency (ER) | payer MEDICARE, BC ==
[2024-05-06 02:47] VITALS: TEMP 97.9
[2024-05-06] MEDS ORDERED: NORCO 5/325 MG ONE (03:02)
[2024-05-06 04:04] VITALS: PULSE 77
--- NOTE | 2024-05-06 04:37 | XRAY ---
CLINICAL HISTORY: pain COMPARISON: None. TECHNIQUE: A CT non-contrast scan of the lumbar spine was performed. Axial images were obtained with reformatted coronal and sagittal images and submitted for interpretation. One of the following dose reduction techniques was utilized for this exam: Automated exposure control, adjustment of the mA and/or kV according to patient size, and use of iterative reconstruction. FINDINGS: Straitening of the lumbar lordosis, likely secondary to muscular spasm. No evidence of acute fracture or dislocation. The cortical and trabecular bone patterns are normal. No signs of lytic or sclerotic lesions. Spondylotic changes in the visualized spine with multilevel marginal bony hypertrophies, facet arthropathic changes, endplate changes, mild antrolisthesis of L3 over L4, and mild retrolisthesis of L4 over L5 vertebra. Multilevel disc bony hypertrophy complexes in combination with facet arthropathic changes exert effects on the spinal canal and neural foraminal. Extensive aortic calcific atheromas. IMPRESSION: 1. Severe spondylotic changes were noted, details as mentioned above. 2. No evidence of acute fracture or dislocation. Electronically Signed by: Aakash Velasquez MD. (05/06/2024 04:31:57 EST)
[2024-05-06] MEDS: NORCO 5/325 MG PO ONE (04:51)
[2024-05-06 05:09] VITALS: BP 107/52; RESP 22; O2SAT 95
--- NOTE | 2024-05-06 05:09 | ERPHSYRPT ---
- History of Present Illness Time Seen by Provider: 05/06/24 04:49 Source: patient Exam Limitations: no limitations Patient Subjective Stated Complaint: Pt. states that her rt. lower back hurts and sometimes it shoots over to her left side. It only hurts when she is up mo ving, gets better at rest. Triage Nursing Assessment: Pt. ambulated to room from bathroom without difficulty, slow gait slightly stiff. Able to move all four extremities. a& ox3, resp even unlabored. Physician History: 74 years old female with history of hypertension, hyperlipidemia, coronary artery disease, congestive heart failure, diabetes mellitus presented in the ER with complaint of right low back pain for the last 2 to 3 days with progressive worsening. Patient reports she fell couple of days ago while she was doing her routine cardio exercises, took some Tylenol and improved but prior to arrival her pain got worse and no relief with taking [id number] pain medications. No numbness tingling or weakness of lower extremities, no loss of bowel or bladder control. Denies any fall or trauma. Allergies/Adverse Reactions: cefdinir Allergy (Severe, Verified 01/17/23 01:53) Home Medications: ALPRAZolam 0.25 MG [xanAX 0.25 MG] 0.25 mg PO TID PRN PRN 08/27/19 [History] Acetaminophen 325 mg [Tylenol 325 mg] 325 mg PO Q4HPRN PRN 08/27/19 [History] Allopurinol 100 mg [Zyloprim 100 mg] 100 mg PO DAILY 08/27/19 [History] Aspirin EC 81 mg [Ecotrin 81 mg] 81 mg PO DAILY 08/27/19 [History] Atorvastatin Calcium [Lipitor] 80 mg PO HS 08/27/19 [History] Furosemide 40 mg [Lasix 40 MG] 20 mg PO UD 08/27/19 [History] Levothyroxine Sodium 75 Mcg [Synthroid 75 Mcg] 75 mcg PO DAILY 08/27/19 [History] Metformin HCl 500 mg [Glucophage 500 MG] 500 mg PO BIDWM 08/27/19 [History] Metoprolol Tartrate 25 mg [Lopressor 25MG Tab] 100 mg PO DAILY 08/27/19 [History] Omeprazole 20 mg PO DAILY 08/27/19 [History] Clopidogrel Bisulfate [Clopidogrel] 75 mg PO DAILY 11/11/19 [History] Evolocumab [Repatha Sureclick] 140 mg SQ UD 05/06/24 [History] Hx Tetanus, Diphtheria Vaccination/Date Given: No Hx Influenza Vaccination/Date Given: Yes Hx Pneumococcal Vaccination/Date Given: Yes Immunizations Up to Date: No Travel Risk - International Travel Have you traveled outside of the country in past 3 weeks: No - Emerging Infectious Disease Are you exhibiting symptoms associated with any current EIDs: No - Review of Systems Constitutional: No Symptoms Ears, Nose, & Throat: No Symptoms Respiratory: No Symptoms Cardiac: No Symptoms Abdominal/Gastrointestinal: No Symptoms Musculoskeletal: Back Pain Skin: No Symptoms Neurological: No Symptoms Endocrine: No Symptoms Hematologic/Lymphatic: No Symptoms - Past Medical History Pertinent Past Medical History: Yes Neurological History: No Pertinent History ENT History: No Pertinent History Cardiac History: High Cholesterol, Hypertension, Myocardial Infarction ([place]) Respiratory History: No Pertinent History Endocrine Medical History: Diabetes Type II, Thyroid Cancer Musculoskeletal History: No Pertinent History GI Medical History: GERD, Ulcer History: Other Psycho-Social History: No Pertinent History, Depression Female Reproductive Disorders: No Pertinent History Other Medical History: Hx of Kidney Stone - Past Surgical History Past Surgical History: Yes Neuro Surgical History: No Pertinent History Cardiac: CABG, Cardiac Catheterization, Cardiac Stent, Pacemaker Respiratory: No Pertinent History Gastrointestinal: Appendectomy Genitourinary: No Pertinent History Musculoskeletal: No Pertinent History Female Surgical History: Tubal Ligation - Social History Smoking Status: Never smoker Exposure to second hand smoke: Yes Drug Use: none Patient Lives Alone: No - Social Determinants of Health Will the patient participate in the screening: Yes Do you worry about a steady place to live?: No Do you have any problems with any of the following?: No known problems In the past 12 months,have you had to go without utilities?: No Transportation Issues: No Has anyone in your support network made you feel unsafe?: No Have you or anyone in your house had to go without enough: No - Nursing Vital Signs Nursing Vital Signs: Initial Vital Signs Temperature 97.9 F 05/06/24 02:20 Pulse Rate 80 05/06/24 02:20 Respiratory Rate 18 05/06/24 02:20 Blood Pressure 132/74 05/06/24 02:20 O2 Sat by Pulse Oximetry 96 05/06/24 02:20 Pain Scale Pain Intensity 0 - Physical Exam General Appearance: no apparent distress Ears, Nose, Throat Exam: normal ENT inspection, pharynx normal Neck Exam: normal inspection, full range of motion Respiratory Exam: normal breath sounds, lungs clear Cardiovascular Exam: regular rate/rhythm, normal heart sounds Back Exam: normal inspection, decreased range of motion, muscle spasm, point tenderness (Right sacroiliac area) Extremity Exam: normal inspection, normal range of motion Neurologic Exam: alert, oriented x 3, cooperative, geospatial image analyst II-XII nml as tested Skin Exam: normal color SpO2 Interpretation: normal SpO2: 95 O2 Delivery: Room Air Ordered Tests: Active Orders 24 hr Category Date Time Status LUMBAR SPINE W/O [CT] Stat Exams 05/06/24 03:01 Completed Medication Summary Discontinued Medications Generic Name Dose Route Start Last Admin Trade Name Mena PRN Reason Stop Dose Admin Hydrocodone Bitart/Acetaminophen Confirm 05/06/24 03:02 Hydrocodone/Apap 5/325 1 Tab Tablet Administered 05/06/24 03:03 Dose 1 tab .ROUTE .STK-MED ONE Hydrocodone Bitart/Acetaminophen 1 tab 05/06/24 03:05 05/06/24 04:51 Hydrocodone/Apap 5/325 1 Tab Tablet PO 05/06/24 03:06 1 tab STAT ONE Administration - Progress Progress: improved Progress Note: 05/06/24 05:07 74 years old is evaluated for right lower back pain. No focal neurodeficit in the lower extremities. No cauda equina symptoms. X-rays showed muscle spasm, deemed degenerative and spondylitic changes with no acute fracture subluxation. She is given [place] for symptomatic relief, on reevaluation she is pain-free. She is advised to take Tylenol as needed and outpatient follow-up. Discussed signs symptoms of worsening needing return to ER which she seems understanding. Stable for discharge. Counseled pt/family regarding: diagnosis, need for follow-up, rad results Medical Desision Making - Independent Historian Additional History obtained from: Spouse - Diagnostic Testing Diagnostic test were ordered, analyzed, and reviewed by me: Yes Radiological Interpretation: Reviewed by me, Teleradiologist Report - Risk of complications The pt has a mod risk of morbidity or mortality based on: Need for prescription drug management - Departure Departure Disposition: Home Clinical Impression: Low back strain Condition: Stable Critical Care Time: No Referrals: MARLIN MILLER MD [Primary Care Provider] - Follow up with PCP 1 day Instructions: Low Back Pain (DC) Additional Instructions: Take pain medications as needed. Follow-up with primary care for reevaluation. Return to ER for intractable pain, numbness tingling weakness of lower extremities/loss of bowel or bladder control etc.
== END 2024-05-06 05:35 | disposition home or self-care (01) ==
LOC: ED 02:18
DX: M54.50 Low back pain, unspecified (principal)
CPT/HCPCS: 72131; 99284; A9270-GY